=== PATIENT | female | born 1940 | race Caucasian/White ===

== ENCOUNTER 2022-07-29 21:21 | Emergency (ER) | payer OTHER ==
[~2022-07-29] VITALS: Ht 170.2 cm; Wt 72.6 kg
[2022-07-29] MEDS ORDERED: IV NORMAL SALINE 1000 ML BAG IV ONE (21:30)
[2022-07-29] MEDS ORDERED: ONDANSETRON 4 MG/2 ML VIAL IV ONE (21:30)
[2022-07-29] MEDS ORDERED: HYDROMORPHONE 1 MG/1 ML DISP.SYRIN IV ONE ×2 (21:30→23:00)
[2022-07-29] MEDS ORDERED: ONDANSETRON 4 MG/2 ML VIAL ONE (21:31)
[2022-07-29] MEDS ORDERED: HYDROMORPHONE 1 MG/1 ML DISP.SYRIN ONE ×2 (21:31→22:47)
--- NOTE | 2022-07-29 21:34 | NUR ---
Dr. Tavarez at bedside for mse. pt c/o abd pain. pt was bib ra, pt states she was eating at a restaurant.
[2022-07-29 22:24] LABS: ALANINE AMINOTRANSFERASE 22 U/L (14-59); ALKALINE PHOSPHATASE 92 U/L (50-136); ASPARTATE AMINOTRANSFERASE 23 U/L (15-37); BILIRUBIN,DIRECT < 0.1 mg/dL (0.0-0.2); BILIRUBIN,TOTAL 0.6 mg/dL (0.2-1.0); CARBON DIOXIDE 28 mmol/L (21-32); CHLORIDE 94 mmol/L (98-107); CREATININE 1.1 mg/dL (0.6-1.3); GLUCOSE 93 mg/dL (74-106); LIPASE 73 U/L (73-393); POTASSIUM 3.4 mmol/L (3.5-5.1); TOTAL PROTEIN, SERUM 6.3 g/dL (6.4-8.2); UREA NITROGEN, BLOOD 18 mg/dL (7-18)
[2022-07-29 22:26] LABS: HEMATOCRIT 36.8 % (31.2-41.9); MEAN CORPUSCULAR HEMOGLOBIN 34.8 uug (24.7-32.8); MEAN CORPUSCULAR VOLUME 100.9 fL (75.5-95.3); PLATELET COUNT (AUTO) 272 K/uL (179-408)
[2022-07-29] MEDS ORDERED: PROCHLORPERAZINE EDISYLATE 10 MG/2 ML VIAL ONE (22:47)
[2022-07-29] MEDS ORDERED: SWABABLE VALVE TRANSFER SET EA MC ONE (22:55)
[2022-07-29] MEDS ORDERED: IV NORMAL SALINE 250 ML IV ONE (22:55)
[2022-07-29] MEDS ORDERED: IOHEXOL 300MG/ML 100 ML INFUS..BTL ONE (22:55)
[2022-07-29] MEDS ORDERED: PROCHLORPERAZINE EDISYLATE 10 MG/2 ML VIAL IV ONE (23:00)
--- NOTE | 2022-07-29 23:04 | NUR ---
pt taken to cat scan.
--- NOTE | 2022-07-29 23:23 | NUR ---
pt returned from cat scan.
--- NOTE | 2022-07-30 00:23 | NUR ---
assisted pt to the bathroom pt with steady gait.
[2022-07-30 00:34] LABS: *BILIRUBIN,URIN NEGATIVE (NEGATIVE); *BLOOD, URINE NEGATIVE (NEGATIVE); *CLARITY,URINE SLIGHTLY CLOUDY (CLEAR); *COLOR,URINE YELLOW (YELLOW); *KETONES,URINE NEGATIVE (NEGATIVE); *UROBILINOGEN,URINE 0.2 E.U./dl (NORMAL); LEUKOCYTE ESTERASE ,URINE 3+ (NEGATIVE); NITRITE, URINE NEGATIVE (NEGATIVE); UGLUCOSE NEGATIVE (NEGATIVE)
[2022-07-30] MEDS ORDERED: CYANOCOBALAMIN 1000 MCG/ML VIAL ONE (00:58)
[2022-07-30] MEDS ORDERED: CYANOCOBALAMIN 1000 MCG/ML VIAL IM ONE (01:00)
[2022-07-30] MEDS ORDERED: MAGNESIUM CITRATE 296 ML BOTTLE PO ONE (01:15)
[2022-07-30] MEDS ORDERED: CYAN-10 IJ (01:54)
[2022-07-30] MEDS ORDERED: SYRI-29 MC (01:54)
[2022-07-30] MEDS ORDERED: BISA-79 PO (01:54)
[2022-07-30] MEDS ORDERED: BISA10SU61 RC (01:54)
--- NOTE | 2022-07-30 01:56 | NUR ---
magnessium citrate was ordered by Dr. Tavarez is not availbale and thus not given.
--- NOTE | 2022-07-30 02:05 | NUR ---
Patient discharged to home in stable condition. Written and verbal after care instructions given. Patient verbalizes understanding of instructions. Stressed follow up or return to ER for worsening s/s.
[2022-07-30 02:31] VITALS: BP 110/60
[2022-07-30 09:17] LABS: SQUAMOUS EPITHELIAL CELL,UR FEW /HPF (NONE SEEN); WBC,URINE 20-50 /HPF (0-3)
[2022-07-30 09:18] LABS: BACTERIA,URINE NONE SEEN /HPF (NONE SEEN); RBC,URINE NONE SEEN /HPF (0-3)
== END 2022-07-30 02:31 | disposition home or self-care (01) ==
LOC: ER 21:56
DX: K59.00 Constipation, unspecified (principal); E83.42 Hypomagnesemia; E53.8 Deficiency of other specified B group vitamins; R94.31 Abnormal electrocardiogram [ECG] [EKG]; E87.1 Hypo-osmolality and hyponatremia; E87.6 Hypokalemia; Z96.641 Presence of right artificial hip joint; Z96.611 Presence of right artificial shoulder joint; F31.9 Bipolar disorder, unspecified; Z90.710 Acquired absence of both cervix and uterus; Z90.49 Acquired absence of other specified parts of digestive tract; K58.9 Irritable bowel syndrome, unspecified; K51.90 Ulcerative colitis, unspecified, without complications
CPT/HCPCS: 99285; 96374; 96375; 96361; 80076; 80048; 82607; 83690; 83735; 85025; 87077; 36415; 93005; 96376; 83605; 74177; 81001; 87186; 87086; 96372; 83921; J2405; Q9967; J0780; J1170 ×2; J3420; A4663